=== PATIENT | male | born 1950 | race Caucasian/White ===

== ENCOUNTER → 2017-06-24 | Outpatient (CLI) | payer MEDICARE, OTHER ==
[2017-06-24 09:44] LABS: CREATININE SERUM 1.1 mg/dL (0.6-1.4); GLOM FILT RATE Estimated 69.6 mL/min (>60)
== END | disposition home or self-care (01) ==
LOC: CLAB 08:50
PROVIDERS: Registered Nurse
DX: I71.4 Abdominal aortic aneurysm, without rupture (principal)
CPT/HCPCS: 36415; 82565; 84520

== ENCOUNTER → 2017-07-01 | Outpatient (CLI) | payer MEDICARE, OTHER ==
--- NOTE | ~2017-07-01 | CT14 ---
[facility] A Service of [facility] & [facility] RADIOLOGY TEXT RESULTS PATIENT: NIKOLAS SABILLON LOCATION: [facility] : 52 UNIT #: [id number] AGE: [address]: Divina Lua SEX: M ORDER DR: [id number] [facility] [address] [facility] [address] [place], [place] [address] [id number] O MR#: [id number] Acc #: [id number] NAME: NIKOLAS SABILLON. : 1950 SEX: M STUDY DATE/TIME: 07/01/2017 9:17 UNIT: [facility] ROOM: STUDY DESCRIPTION: CT Angio Abdomen and Pelvis Attending Physician: Divina Lua A.P.R.N. Referring Physician: Divina Lua A.P.R.N. Ordering Physician: Divina Lua A.P.R.N. Primary Care Physician: Glenn Killian M.D. MEDICAL IMAGING REPORT This report is preliminary unless electronic signature is present EXAM CT angiogram of the abdomen and pelvis INDICATIONS Followup aortic aneurysm. TECHNIQUE CT angiogram of the abdomen and pelvis was performed following the administration of IV contrast. Coronal, sagittal and 3-D reformatted images were obtained. This CT exam was performed with one or more of the following radiation dose reduction techniques: automatic control, adjustment of mA and/or kV according to patient size, and iterative reconstruction. Comparison with 12/20/2016. FINDINGS CT ANGIOGRAM: Again demonstrated is an infrarenal abdominal aortic aneurysm. It measures roughly 4.5 cm in greatest AP dimension. This is slightly larger than the previous study where it measured about 4.3 cm in greatest AP dimension. There is a moderate amount of mural thrombus along the periphery of the aneurysm. Mild narrowing involving the common iliac arteries. Stable. There is mild narrowing involving the external iliac arteries. Stable mild narrowing involving the common femoral arteries. Stable appearance of the visceral arteries. Stable accessory lower pole left renal artery which appears to arise off of the proximal left common iliac artery. 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 These arise both above the start of the aneurysm. The dominant left renal artery also arises above the level of the aneurysm. CT OF THE ABDOMEN: Stable fibrotic change within the lung bases. The liver, gallbladder and spleen are unremarkable. The kidneys, adrenal glands and pancreas are unremarkable. PELVIS: Colon is unremarkable. The appendix is normal. The bone windows [facility]. [facility] A Service of [facility] & [facility] RADIOLOGY TEXT RESULTS PATIENT: NIKOLAS SABILLON LOCATION: [facility] : 52 UNIT #: [id number] AGE: [address]: Divina Lua SEX: M ORDER DR: are unremarkable. IMPRESSION 1. Slight interval increase in size of infrarenal abdominal aortic aneurysm. 2. Redemonstrated is variant renal artery anatomy as described above. Dictated by... Nick Casey M.D. THIS IS AN ELECTRONICALLY VERIFIED REPORT Nick Casey M.D. at 07/06/2017 11:21 AM DANYEL/kary TD: 07/02/2017 02:07 JOB #: [id number] MEDICAL IMAGING REPORT Page 1 of 1 COPY
== END | disposition home or self-care (01) ==
LOC: CCAT 08:14
DX: I71.4 Abdominal aortic aneurysm, without rupture (principal)
CPT/HCPCS: 74174; Q9967